=== PATIENT | male | born 1950 | race African-American/Black ===

== ENCOUNTER 2020-10-03 15:47 | Emergency (ER) | payer OTHER ==
[2020-10-03 17:49] LABS: Absolute Lymphocytes (CBC) 2.6 K/uL (0.7-4.9); Basophils % 0.7 % (0-1.3); Hematocrit 42.9 % (39.6-49.0); Lymphocytes % 39.1 % (15.3-44.8); MPV 8.2 fL (7.6-11.3)
[2020-10-03 17:50] LABS: Protime INR 1.19
[2020-10-03] MEDS ORDERED: METHYLPREDNISOLONE 125 MG INJ ONE (18:08)
[2020-10-03] MEDS ORDERED: LEVALBUTEROL 1.25 MG/3 ML NEB ONE (18:09)
[2020-10-03] MEDS ORDERED: cloNIDine HCL 0.1 MG TAB ONE (18:09)
[2020-10-03 18:13] LABS: ALT/SGPT 25 U/L (12-78); AST/SGOT 18 U/L (15-37); Albumin 4.1 g/dL (3.4-5.0); Alkaline Phosphatase 71 U/L (45-117); BUN Blood Urea Nitrogen 12 mg/dL (7-18); Bicarbonate 30 mmol/L (21-32); Bilirubin Direct 0.1 mg/dL (0-0.2); Bilirubin Total 0.4 mg/dL (0.2-1.0); Glucose Level 92 mg/dL (74-106); Magnesium 2.2 mg/dL (1.8-2.4); NT PRO-BNP 151 pg/mL (<125); Potassium 4.3 mmol/L (3.5-5.1); Protein, Total 8.2 g/dL (6.4-8.2); Sodium Level 142 mmol/L (136-145); Troponin (Emerg Dept Use Only) < 0.02 ng/mL (0.0-0.045)
--- NOTE | 2020-10-03 18:46 | RAD REPORT ---
EXAM DESCRIPTION: CT - Chest For Pe Angio - 10/03/2020 6:36 pm CLINICAL HISTORY: Shortness of breath COMPARISON: None. TECHNIQUE: Dynamically enhanced axial 3 mm thick images of the chest were obtained during administra tion of <100> mL Isovue 370 IV contrast. Coronal and oblique reconstruction images were generated and reviewed. Exam utilizes a protocol for optimal evaluation of pulmonary arterial tree. Maximum intensity projections 3D imaging was utilized All CT scans are performed using dose optimization technique as appropriate and may include automated exposure control or mA/KV adjustment according to patient size. FINDINGS: A pulmonary embolus is not seen. A thoracic aortic aneurysm is not noted. A pleural effusion is not seen. A pericardial effusion is not seen. A lung consolidation is not present. Bulla and blebs are present. The largest bleb lies within the le ft upper lobe measuring 6 centimeters IMPRESSION: Negative for a pulmonary embolism.
--- NOTE | 2020-10-03 18:46 | RAD REPORT ---
EXAM DESCRIPTION: [place] Single View10/03/2020 5:56 pm CLINICAL HISTORY: sob COMPARISON: 2016 FINDINGS: Blebs are present within the upper lobes. The lungs appear clear of acute infiltrate. The heart is probably upper limits normal size IMPRESSION: No acute abnormalities displayed
--- NOTE | 2020-10-03 19:08 | ER ---
Nurse's Notes [facility] Name: Von Pond Age: 69 yrs Sex: Male : 1950 Arrival Date: 10/03/2020 Time: 15:52 Bed 2 Private MD: Diagnosis: COPD/ Chronic obstructive pulmonary disease with (acute) exacerbation;Hypertensive heart disease without heart failure Presentation: 10/03 16:05 Chief complaint: Patient states: SOB x 2 days, at the clinic and they sent me for my BP jl7 of 214/111, denies CP, denies NINA, denies N/V/D. Coronavirus screen: Client denies travel out of the [place] in the last 14 days. At this time, the client does not indicate any symptoms associated with coronavirus-19. Ebola Screen: No symptoms or risks identified at this time. Initial Sepsis Screen: Does the patient meet any 2 criteria? No. Patient's initial sepsis screen is negative. Does the patient have a suspected source of infection? No. Patient's initial sepsis screen is negative. Risk Assessment: Do you want to hurt yourself or someone else? Patient reports no desire to harm self or others. Onset of symptoms was October 03, 2020. Care prior to arrival: None. 16:05 Method Of Arrival: Ambulatory jl7 16:05 Acuity: MAI 2 jl7 Triage Assessment: 16:08 General: Appears in no apparent distress. uncomfortable, Behavior is calm, cooperative, jl7 appropriate for age. Pain: Denies pain. Neuro: Level of Consciousness is awake, alert, obeys commands, Oriented to person, place, time, situation. Cardiovascular: Denies chest pain, Patient's skin is warm and dry. Respiratory: Airway is patent Respiratory effort is even, unlabored, Respiratory pattern is regular, symmetrical. Derm: Skin is dry, Skin is normal, Skin temperature is warm. Historical: - Allergies: 16:08 No Known Allergies; jl7 - Home Meds: 16:08 None [Active]; jl7 - PMHx: 16:08 None; jl7 - PSHx: 16:08 None; jl7 - Immunization history:: Adult Immunizations up to date, Client reports receiving the 2nd dose of the Covid vaccine. - Social history:: Smoking status: Patient reports the use of cigarette tobacco products, smokes one pack cigarettes per day. Screenin:30 Abuse screen: Denies threats or abuse. Nutritional screening: No deficits noted. aa5 Tuberculosis screening: No symptoms or risk factors identified. 17:50 Fall Risk IV access (20 points). Ambulatory Aid- Crutches/Cane/Walker (15 pts). Total aa5 Siu Fall Scale indicates Low Risk Score (25-44 pts). Fall prevention measures have been instituted. Side Rails Up X 2 Placed close to Nursing Station. Assessment: 17:30 General: Appears comfortable, Behavior is calm, cooperative. Pain: Denies pain. Neuro: aa5 Level of Consciousness is awake, alert, obeys commands, Oriented to person, place, time, situation. Cardiovascular: Heart tones S1 S2 present Rhythm is regular. Respiratory: Reports shortness of breath cough that is dry, Airway is patent Respiratory effort is even, unlabored, Respiratory pattern is tachypnea Breath sounds with wheezes bilaterally. GI: Abdomen is round non-distended, Bowel sounds present X 4 quads. Abd is soft and non tender X 4 quads. : No signs and/or symptoms were reported regarding the genitourinary system. EENT: No signs and/or symptoms were reported regarding the EENT system. Derm: Skin is dry, Skin is normal, Skin temperature is warm. Musculoskeletal: Range of motion: intact in all extremities. 19:00 Reassessment: Pt back from CT, pt states feeling better, SOB improved. . Neuro: Level aa5 of Consciousness is awake, alert, obeys commands, Oriented to person, place, time, situation. Respiratory: Airway is patent Respiratory effort is even, unlabored, Respiratory pattern is regular, symmetrical. Derm: Skin is dry, Skin is normal, Skin temperature is warm. Vital Signs: 16:05 BP 215 / 116; Pulse 82; Resp 17; Temp 98.2(O); Pulse Ox 99% on R/A; Weight 93.44 kg; jl7 Height 5 ft. 9 in. (175.26 cm); Pain 0/10; 17:31 BP 211 / 111; Pulse 66; Resp 24 S; Pulse Ox 97% on R/A; aa5 19:00 BP 147 / 97; Pulse 80; Resp 20 S; Pulse Ox 98% on R/A; aa5 16:05 Body Mass Index 30.42 (93.44 kg, 175.26 cm) jl7 ED Course: 15:52 Patient arrived in ED. am2 16:08 Triage completed. jl7 16:08 Arm band placed on right wrist. Patient placed in waiting room, Patient notified of jl7 wait time. 17:01 Chica Rivera, RN is Primary Nurse. aa5 17:07 Emmanuel Collins PA is PHCP. cp 17:07 Abdifatah Loaiza MD is Attending Physician. cp 17:30 Patient has correct armband on for positive identification. Bed in low position. Call aa5 light in reach. Side rails up X 1. Adult w/ patient. patient monitor on. Pulse ox on. NIBP on. 17:33 COVID swab sent to lab. vg1 17:38 Initial lab(s) drawn, by me, sent to lab. Inserted saline lock: 20 gauge in right aa5 antecubital area, using aseptic technique. Blood collected. 17:51 XRAY Chest (1 view) In Process Unspecified. EDMS 18:36 CT Chest For PE Angio In Process Unspecified. EDMS 19:26 No provider procedures requiring assistance completed. IV discontinued, intact, bs2 bleeding controlled, No redness/swelling at site. Administered Medications: 17:50 Drug: SOLU-Medrol (methylPrednisoLONE) 125 mg Route: IVP; Site: right antecubital; aa5 19:13 Follow up: Response: No adverse reaction bs2 17:50 Drug: cloNIDine 0.2 mg Route: PO; aa5 19:13 Follow up: Response: No adverse reaction bs2 17:55 Drug: Xopenex (levalbuterol) (3) 1.25 mg Route: Inhalation; aa5 18:59 CANCELLED (Physician Discretion): Lisinopril 20 mg PO once cp 18:59 Not Given (Physician Discretion): amLODIPine 10 mg PO once aa5 19:26 Drug: amLODIPine 10 mg Route: PO; bs2 19:26 Follow up: Response: No adverse reaction bs2 Outcome: 19:08 Discharge ordered by . cp 19:27 Discharged to home ambulatory, with significant other. bs2 19:27 Condition: improved 19:27 Discharge instructions given to patient, significant other, Instructed on discharge instructions, follow up and referral plans. medication usage, Demonstrated understanding of instructions, follow-up care, medications, Prescriptions given X 3. 19:27 Patient left the ED. bs2 Signatures: Dispatcher [employer] EDMS Chica Rivera, RN RN aa5 Emmanuel Collins PA PA cp Leal, Jahala RN RN jl7 Mary Kelly Victoria RN RN vg1 Ami Street, RN RN bs2 Corrections: (The following items were deleted from the chart) 19:25 17:30 Fall Risk None identified. aa5 aa5
--- NOTE | 2020-10-03 19:08 | EDPHYS ---
Physician Documentation [facility] Name: Von Pond Age: 69 yrs Sex: Male : 1950 Arrival Date: 10/03/2020 Time: 15:52 Bed 2 Private MD: ED Physician Abdifatah Loaiza HPI: 10/03 17:25 This 69 yrs old Black Male presents to ER via Ambulatory with complaints of High Blood cp Pressure. 17:25 The patient has elevated blood pressure and discovered this at a physician's office, cp and sent to the emergency department for evaluation. 17:25 Onset: The symptoms/episode began/occurred today. cp 17:25 Associated signs and symptoms: Pertinent positives: shortness of breath times 2 days, cp Pertinent negatives: chest pain, headache, visual changes. Severity of symptoms: At its worst the blood pressure was 214 mm Hg. The patient has not experienced similar symptoms in the past. Historical: - Allergies: 16:08 No Known Allergies; jl7 - Home Meds: 16:08 None [Active]; jl7 - PMHx: 16:08 None; jl7 - PSHx: 16:08 None; jl7 - Immunization history:: Adult Immunizations up to date, Client reports receiving the 2nd dose of the Covid vaccine. - Social history:: Smoking status: Patient reports the use of cigarette tobacco products, smokes one pack cigarettes per day. ROS: 17:30 Respiratory: Positive for shortness of breath, at rest. cp 17:30 Eyes: Negative for injury, pain, redness, and discharge. cp 17:30 Constitutional: Negative for body aches, chills, fever, poor PO intake. 17:30 ENT: Negative for ear pain, rhinorrhea, difficulty swallowing, difficulty handling secretions. 17:30 Cardiovascular: Negative for chest pain, edema, palpitations. 17:30 Abdomen/GI: Negative for abdominal pain, nausea, vomiting, and diarrhea. 17:30 Back: Negative for pain at rest, pain with movement. 17:30 : Negative for urinary symptoms. Exam: 17:33 Constitutional: The patient appears in no acute distress, alert, awake, cp non-diaphoretic, non-toxic, well developed, well nourished. 17:33 Head/Face: Normocephalic, atraumatic. cp 17:33 Eyes: Periorbital structures: appear normal, Pupils: equal, round, and reactive to light and accomodation, Extraocular movements: intact throughout, Conjunctiva: normal, no exudate, no injection, Sclera: no appreciated abnormality, Lids and lashes: appear normal, bilaterally. 17:33 ENT: External ear(s): are unremarkable, Nose: is normal, Mouth: Lips: moist, Oral mucosa: pink and intact, moist, Posterior pharynx: Airway: no evidence of obstruction, patent. 17:33 Neck: ROM/movement: is normal, is supple, without pain, no range of motions limitations. 17:33 Chest/axilla: Inspection: normal, Palpation: is normal, no crepitus, no tenderness. 17:33 Cardiovascular: Rate: normal, Rhythm: regular, Heart sounds: murmur, not appreciated, Edema: is not appreciated, JVD: is not appreciated. 17:33 Respiratory: the patient does not display signs of respiratory distress, Respirations: normal, no use of accessory muscles, no retractions, labored breathing, is not present, Breath sounds: are clear throughout, no decreased breath sounds, no stridor, no wheezing. 17:33 Abdomen/GI: Inspection: abdomen appears normal, Palpation: abdomen is soft and non-tender, in all quadrants. 17:33 Neuro: Orientation: to person, place \T\ time. Mentation: is normal, Cerebellar function: is grossly normal, Motor: moves all fours, strength is normal, Sensation: is normal. 17:35 ECG was reviewed by the Attending Physician. Vital Signs: 16:05 BP 215 / 116; Pulse 82; Resp 17; Temp 98.2(O); Pulse Ox 99% on R/A; Weight 93.44 kg; jl7 Height 5 ft. 9 in. (175.26 cm); Pain 0/10; 17:31 BP 211 / 111; Pulse 66; Resp 24 S; Pulse Ox 97% on R/A; aa5 19:00 BP 147 / 97; Pulse 80; Resp 20 S; Pulse Ox 98% on R/A; aa5 16:05 Body Mass Index 30.42 (93.44 kg, 175.26 cm) 7 MDM: 17:12 Patient medically screened. 19:08 Data reviewed: vital signs, nurses notes, lab test result(s), EKG, radiologic studies, cp CT scan, and as a result, I will discharge patient. 19:08 Test interpretation: by ED physician or midlevel provider: ECG, plain radiologic cp studies. Counseling: I had a detailed discussion with the patient and/or guardian regarding: the historical points, exam findings, and any diagnostic results supporting the discharge/admit diagnosis, the presence of at least one elevated blood pressure reading (>120/80) during this emergency department visit, lab results, radiology results, the need for outpatient follow up, for definitive care, a family practitioner, to return to the emergency department if symptoms worsen or persist or if there are any questions or concerns that arise at home, smoking cessation. Response to treatment: the patient's symptoms have markedly improved after treatment. ED course: VSS. Blood pressure markedly improved. Shortness of breath improved. No signs of respiratory distress. Will discharge to home for continued monitoring. 10/03 17:17 Order name: Basic Metabolic Panel; Complete Time: 18:15 cp 10/03 18:15 Interpretation: Normal except: CL 108. cp 10/03 17:17 Order name: CBC with Diff; Complete Time: 18:15 cp 10/03 17:17 Order name: LFT's; Complete Time: 18:15 cp 10/03 17:17 Order name: Magnesium; Complete Time: 18:15 cp 10/03 17:17 Order name: NT PRO-BNP; Complete Time: 18:15 cp 14 17:17 Order name: PT-INR; Complete Time: 18:15 cp 10/03 17:17 Order name: Troponin (emerg Dept Use Only); Complete Time: 18:15 cp 10/03 17:17 Order name: XRAY Chest (1 view); Complete Time: 18:56 cp 10/03 18:17 Order name: CT Chest For PE Angio; Complete Time: 18:56 cp 10/03 17:17 Order name: EKG; Complete Time: 17:18 cp 10/03 17:17 Order name: Cardiac monitoring; Complete Time: 17:36 cp 14 17:17 Order name: EKG - Nurse/Tech; Complete Time: 17:36 cp 10/03 17:17 Order name: IV Saline Lock; Complete Time: 17:43 cp 10/03 17:17 Order name: Labs collected and sent; Complete Time: 17:43 cp 10/03 17:17 Order name: O2 Per Protocol; Complete Time: 17:36 cp 10/03 17:17 Order name: O2 Sat Monitoring; Complete Time: 17:36 cp EC:35 Rate is 71 beats/min. Rhythm is regular. ME interval is normal. QRS interval is normal. cp QT interval is normal. Interpreted by me. Reviewed by me. Administered Medications: 17:50 Drug: SOLU-Medrol (methylPrednisoLONE) 125 mg Route: IVP; Site: right antecubital; aa5 19:13 Follow up: Response: No adverse reaction bs2 17:50 Drug: cloNIDine 0.2 mg Route: PO; aa5 19:13 Follow up: Response: No adverse reaction bs2 17:55 Drug: Xopenex (levalbuterol) (3) 1.25 mg Route: Inhalation; aa5 18:59 CANCELLED (Physician Discretion): Lisinopril 20 mg PO once cp 18:59 Not Given (Physician Discretion): amLODIPine 10 mg PO once aa5 19:26 Drug: amLODIPine 10 mg Route: PO; bs2 19:26 Follow up: Response: No adverse reaction bs2 Disposition: 10/04 06:41 Co-signature as Attending Physician, Abdifatah Loaiza MD I agree with the assessment and kdr plan of care. Disposition Summary: 10/03/20 19:08 Discharge Ordered Location: Home cp Problem: new cp Symptoms: have improved cp Condition: Stable cp Diagnosis - COPD/ Chronic obstructive pulmonary disease with (acute) exacerbation cp - Hypertensive heart disease without heart failure cp Followup: cp - With: Private Physician - When: 1 - 2 days - Reason: Recheck today's complaints Discharge Instructions: - Discharge Summary Sheet cp - Hypertension, Adult cp - Chronic Obstructive Pulmonary Disease Exacerbation cp - Steps to Quit Smoking cp - Health Risks of Smoking cp - Smoking Tobacco Information, Adult cp Forms: - Medication Reconciliation Form cp - Thank You Letter cp - Antibiotic Education cp - Prescription Opioid Use cp Prescriptions: - albuterol sulfate 90 mcg/actuation Inhalation HFA aerosol inhaler - inhale 2 puff by INHALATION route every 4-6 hours; 1 Inhaler; Refills: 0, cp Product Selection Permitted - amlodipine 5 mg Oral tablet - take 1 tablet by ORAL route once daily; 30 tablet; Refills: 0, Product cp Selection Permitted - Prednisone 20 mg Oral Tablet - take 2 tablets by ORAL route once daily for 5 days; 10 tablet; Refills: 0, cp Product Selection Permitted Signatures: Dispatcher [employer] EDAZ Abdifatah Loaiza MD MD kdr Calderon, Audri RN RN aa5 Emmanuel Collins PA PA cp Abhi Bush RN RN jl7 Ami Street RN RN bs2 Corrections: (The following items were deleted from the chart) 10/03 18:48 17:19 CORONAVIRUS+MR.LAB.BRZ ordered. EDAZ EDMS 18:59 18:59 Lisinopril 20 mg PO once ordered. cp cp
[2020-10-03] MEDS ORDERED: AMLODIPINE 10 MG TAB ONE (19:36)
[2020-10-03 19:56] VITALS: TEMP 98.2
[2020-10-03 19:59] VITALS: BP 147/97; O2SAT 98
--- NOTE | 2020-10-04 07:30 | EKG ---
Test Date: 2020-10-03 Test Time: 17:30:30 Railway Track Worker: SANGEETHA MEASUREMENT RESULTS: Intervals: Rate: 71 WI: 150 QRSD: 90 QT: 400 QTc: 434 Maryneal: P: 79 WI: 150 QRS: 56 T: 44 INTERPRETIVE STATEMENTS: Normal sinus rhythm Voltage criteria for left ventricular hypertrophy Abnormal ECG Compared to ECG 07/29/2015 17:37:40 No significant changes Electronically Signed On 10-04-20 07:29:05 CDT by Richard Barker
== END 2020-10-03 19:27 | disposition home or self-care (01) ==
LOC: ER 15:47
DX: J44.1 Chronic obstructive pulmonary disease with (acute) exacerbation (principal); I11.9 Hypertensive heart disease without heart failure; F17.210 Nicotine dependence, cigarettes, uncomplicated; Z20.822 Contact with and (suspected) exposure to COVID-19
CPT/HCPCS: 93005; 85025; 80048; 36415; 83735; 85610; 80076; 84484; 83880; 71275; 71045; 96374; 99285; U0003; J2930

== ENCOUNTER 2023-09-25 10:48 | Observation (INO) | payer MEDICARE, OTHER ==
--- OUTSIDE RECORDS SUMMARY | 2023-09-25 10:51 | XMS REPORT | Continuity of Care Document ---
Author Name Unknown Address [address] [place] [address] [facility] Address [address] [place] [address] Care Team Providers Care Mannequin Mold Maker Name Role Phone Unavailable Unavailable Unavailable Payers Payer Name Policy Type Policy Number Effective Date Expirati on Date Source [employer] (MEDICARE REPLACEMENT HMO) [id number] 2023 00:00:00 Encounters Start Date/Time End Date/Time Encounter Type Admission Type Attending [facility] Facility Care Department Encounter ID Source 2023-01-21 00:00:00 2023-01-21 00:00:00 Outpatient [facility] [id number] [facility] 2023-01-09 00:00:00 2023-01-09 00:00:00 Outpatient [id number] [facility]
[2023-09-25 11:42] LABS: Absolute Eosinophils 0.3 K/uL (0-0.5); Absolute Lymphocytes (CBC) 2.5 K/uL (0.7-4.9); Absolute Monocytes 0.6 K/uL (0.1-1.3); Absolute Neutrophil 1.7 K/uL (1.8-8.0); Basophils % 0.7 % (0-1.3); Eosinophils % 6.3 % (0-4.4); Hematocrit 40.2 % (39.6-49.0); Hemoglobin 12.6 g/dL (13.6-17.9); Lymphocytes % 47.7 % (15.3-44.8); MCH 26.6 pg (27.0-35.0); MCHC 31.3 g/dL (32.0-36.0); MCV 85.1 fL (80-100); MPV 7.7 fL (7.6-11.3); Monocytes % 12.1 % (3.3-12.3); Neutrophils % 33.2 % (41.7-73.7); Platelets 224 thou/uL (152-406); RBC Red Blood Cell Count 4.73 M/uL (4.33-5.43); Red Cell Distribution Width 14.6 % (12.1-15.2)
[2023-09-25 11:47] LABS: PT Prothrombin Time 12.5 SECONDS (9.4-12.5); Protime INR 1.14
--- NOTE | 2023-09-25 12:03 | RAD REPORT ---
EXAM DESCRIPTION: RAD - Chest Single View - 09/25/2023 11:54 am CLINICAL HISTORY: CHEST PAIN Chest pain. COMPARISON: Chest Single View dated 10/03/2020; Chest Single View dated 07/29/2015 FINDINGS: Portable technique limits examination quality. The lungs are grossly clear. The heart is upper limit of normal in size. No displaced fractures. IMPRESSION: No acute intrathoracic process suspected.
[2023-09-25 12:12] LABS: Anion Gap 4.7 mEq/L (5.0-15.0); Potassium 3.7 mEq/L (3.5-5.1); Troponin High Sensitivity 5.8 pg/mL (<58.9)
--- NOTE | 2023-09-25 13:06 | EDPHYS ---
Physician Documentation [facility] Name: Von Pond Age: 72 yrs Sex: Male : 1950 Arrival Date: 09/25/2023 Time: 10:48 Bed 16 Private MD: ED Physician Krzysztof Connell HPI: 09/24 11:10 This 72 yrs old Black Male presents to ER via Unassigned with complaints of Foot Pain, rn Chest Pain. 11:10 The patient or guardian reports chest pain that is located primarily in the substernal rn area. Onset: 3 day(s) ago. The pain radiates to the left shoulder, left neck. Associated signs and symptoms: Pertinent negatives: abdominal pain, cough, diaphoresis, lower extremity swelling, palpitations, shortness of breath, syncope, vomiting. The chest pain is described as aching. Duration: The patient or guardian reports multiple episodes, that are intermittent. Modifying factors: The symptoms are alleviated by nothing. the symptoms are aggravated by nothing. Severity of pain: At its worst the pain was mild in the emergency department the pain has improved. The patient has not experienced similar symptoms in the past. Patient reports 3 days of intermittent chest pain, substernal and left-sided, radiates to the left shoulder and neck. Denies fever or illness. No cough. No trauma. Did move a washing machine and heavy door 1 week ago but this chest pain started days after. No current chest pain but had an episode that lasted a few minutes prior to coming in this morning which prompted his visit today. Denies previous cardiac workup.. Historical: - Allergies: 11:10 No Known Allergies; ll1 - Home Meds: 11:10 amlodipine oral [Active]; atorvastatin oral [Active]; Hydrochlorothiazide Oral [Active];ll1 - PMHx: 11:10 Hypertensive disorder; Hypercholesterolemia; ll1 - PSHx: 11:10 None; ll1 - Immunization history:: Adult Immunizations up to date. - Infectious Disease History:: Denies. - Social history:: Smoking status: Patient/guardian denies using tobacco. - Family history:: not pertinent. - Hospitalizations: : No recent hospitalization is reported. ROS: 11:10 Constitutional: Negative for fever, chills, and weight loss, Eyes: Negative for injury, rn pain, redness, and discharge, Neck: Negative for injury, pain, and swelling, Cardiovascular: Positive for chest pain Respiratory: Negative for shortness of breath, cough, wheezing, and pleuritic chest pain, Abdomen/GI: Negative for abdominal pain, nausea, vomiting, diarrhea, and constipation, Back: Negative for injury and pain, MS/Extremity: Negative for injury and deformity, Skin: Negative for injury, rash, and discoloration, Neuro: Negative for headache, weakness, numbness, tingling, and seizure, Exam: 11:10 Constitutional: This is a well developed, well nourished patient who is awake, alert, rn and in no acute distress. Head/Face: Normocephalic, atraumatic. Chest/axilla: Normal chest wall motion. Nontender with no deformity. Cardiovascular: Regular rate and rhythm. No pulse deficits. Respiratory: No increased work of breathing, no retractions or nasal flaring. Abdomen/GI: Soft, non-tender MS/ Extremity: Pulses equal, no cyanosis. Neurovascular intact. Full, normal range of motion. Equal circumference. Neuro: Awake and alert, GCS 15 11:24 ECG was reviewed by the Attending Physician. rn Vital Signs: 11:12 BP 187 / 94; Pulse 73; Resp 17; Temp 98.2; Pulse Ox 99% on R/A; Weight 96.16 kg; Height ll1 5 ft. 8 in. ; Pain 4/10; 11:39 BP 135 / 83; Pulse 67; Resp 19 S; Pulse Ox 94% on R/A; as6 12:54 BP 168 / 97; Pulse 67; Resp 18; Pulse Ox 94% on R/A; Pain 0/10; al5 13:54 BP 119 / 96; Pulse 63; Resp 16; Pulse Ox 100% on R/A; al5 14:50 BP 137 / 79; Pulse 68; Resp 17; Pulse Ox 95% on R/A; al5 11:12 Body Mass Index 32.23 (96.16 kg, 172.72 cm) ll1 11:12 Pain Scale: Adult ll1 12:54 Pain Scale: Adult al5 MDM: 10:59 Patient medically screened. rn 12:52 HEART Score: History: Highly Suspicious (2), ECG: Non specific repolarization rn disturbance / LBTB / PM (1), Age: > or = 65 years (2), Risk Factors: 1 or 2 risk factors (1), Troponin: < or = 1 x Normal Limit (0), Total Score = 6. 13:05 Differential diagnosis: acute myocardial infarction, acute pericarditis, anxiety, rn coronary artery disease chest wall pain, costochondritis, esophagitis, gastritis, gastroesophageal reflux disease (GERD), stable angina, unstable angina. The patient was given aspirin in the Emergency Department. Data reviewed: vital signs, nurses notes, lab test result(s), EKG, radiologic studies, plain films, and as a result, I will admit patient. Consideration of Admission/Observation Patient was admitted/placed on observation. Escalation of care including admission/observation considered. Counseling: I had a detailed discussion with the patient and/or guardian regarding the historical points, exam findings, and any diagnostic results supporting the discharge/admit diagnosis, lab results, radiology results, the need for further work-up and treatment in the hospital. 09/24 11:24 Order name: Basic Metabolic Panel; Complete Time: 12:32 rn 09/24 11:24 Order name: CBC with Diff; Complete Time: 12:12 rn 09/24 11:24 Order name: NT PRO-BNP; Complete Time: 12:32 rn 09/24 11:24 Order name: PT-INR; Complete Time: 12:12 rn 09/24 11:24 Order name: Troponin HS; Complete Time: 12:32 rn 09/24 14:17 Order name: T4 Free EDKS 09/24 14:17 Order name: Thyroid Stimulating Hormone EDKS 09/24 14:17 Order name: Basic Metabolic Panel EDMS 09/24 14:17 Order name: Basic Metabolic Panel EDMS 09/24 14:17 Order name: Basic Metabolic Panel EDMS 09/24 14:17 Order name: Basic Metabolic Panel EDMS 09/24 14:17 Order name: Basic Metabolic Panel EDMS 09/24 14:17 Order name: Basic Metabolic Panel EDMS 09/24 14:17 Order name: CBC with Automated Diff EDMS 09/24 14:17 Order name: CBC with Automated Diff EDMS 09/24 14:17 Order name: CBC with Automated Diff EDMS 09/24 14:17 Order name: CBC with Automated Diff EDMS 09/24 14:17 Order name: CBC with Automated Diff EDMS 09/24 14:17 Order name: CBC with Automated Diff EDMS 09/24 14:17 Order name: Hemoglobin A1c EDMS / 14:17 Order name: Hemoglobin A1c EDMS 07/ 14:17 Order name: Lipid Profile EDMS / 14:17 Order name: Lipid Profile EDMS 07/ 14:17 Order name: Magnesium EDMS 07 14:17 Order name: Magnesium EDMS 07 14:17 Order name: Magnesium EDMS 07/ 14:17 Order name: Magnesium EDMS 07/ 14:17 Order name: Magnesium EDMS 07/ 14:17 Order name: Magnesium EDMS 07 14:17 Order name: Phosphorus EDMS 07/ 14:17 Order name: Phosphorus EDMS 09/24 14:17 Order name: Phosphorus EDMS 07/ 14:17 Order name: Phosphorus EDMS / 14:17 Order name: Phosphorus EDMS 09/24 14:17 Order name: Phosphorus EDMS 09/24 14:17 Order name: Troponin High Sensitivity EDMS 09/24 14:17 Order name: Troponin High Sensitivity EDMS 09/24 14:17 Order name: Troponin High Sensitivity EDMS / 11:24 Order name: XRAY Chest (1 view); Complete Time: 12:12 rn 09/24 14:17 Order name: Echo with Doppler EDMS 09/24 11:24 Order name: EKG; Complete Time: 11:24 rn 09/24 11:24 Order name: Cardiac monitoring; Complete Time: 11:29 rn 09/24 11:24 Order name: EKG - Nurse/Tech; Complete Time: 11:29 rn 09/24 11:24 Order name: IV Saline Lock; Complete Time: 11:36 rn 09/24 11:24 Order name: Labs collected and sent; Complete Time: 11:36 rn 09/24 11:24 Order name: O2 Per Protocol; Complete Time: 11:29 rn 09/24 11:24 Order name: O2 Sat Monitoring; Complete Time: 11:29 rn EC:24 Rate is 71 beats/min. Rhythm is regular. QRS Radom is Normal. OH interval is normal. QRS rn interval is normal. QT interval is normal. No Q waves. No ST changes noted. Clinical impression: NSR w/ Non-specific ST/T Changes. Interpreted by me. Reviewed by me. Administered Medications: 13:37 Drug: Aspirin PO Chewable Tablet 324 mg PO once; 81 mg tablets x 4 Route: PO; rs5 13:54 Follow up: Response: No adverse reaction al5 Disposition Summary: 09/25/23 13:06 Hospitalization Ordered Notes: Hospitalization Status: Observation rn Provider: Joseph Connell rn Location: Telemetry/MedSurg (observation) rn Condition: Stable rn Problem: new rn Symptoms: have improved rn Bed/Room Type: Standard rn Room Assignment: [facility](09/25/23 14:38) [facility] Diagnosis - Chest pain, unspecified rn Forms: - Medication Reconciliation Form rn - SBAR form rn - Leadership Thank You Letter rn Signatures: Dispatcher [employer] EDMS Krzysztof Connell MD MD rn Aguilar, Jose RN RN ja1 Jason Severino RN RN ll1 Jamaal Sadler RN RN rs5 Mary Romero RN al5 Corrections: (The following items were deleted from the chart) 11:24 11:24 BASIC METABOLIC PANEL+C.LAB.BRZ ordered. EDMS EDMS 11:24 11:24 CBC+H.LAB.BRZ ordered. EDMS EDMS 11:24 11:24 PROBNP+C.LAB.BRZ ordered. EDMS EDMS 11:24 11:24 PROTIME (+INR)+COAG.LAB.BRZ ordered. EDMS EDMS 11:24 11:24 Troponin High Sensitivity+C.LAB.BRZ ordered. EDMS EDMS 14:26 13:06 rn zaida 14:38 14:26 410 ja1 ll1
--- NOTE | 2023-09-25 13:06 | ER ---
Nurse's Notes [facility] Name: Von Pond Age: 72 yrs Sex: Male : 1950 Arrival Date: 09/25/2023 Time: 10:48 Bed 16 Private MD: Diagnosis: Chest pain, unspecified Presentation: 09/24 11:12 Chief complaint: Patient states: Intermittent CP 2-3 days after moving heavy objects 3 ll1 days prior. Pain to R hip that radiates into R foot. Coronavirus screen: Client denies travel out of the [place] in the last 14 days. At this time, the client does not indicate any symptoms associated with coronavirus-19. Ebola Screen: Patient denies travel to an Ebola-affected area in the 21 days before illness onset. Initial Sepsis Screen: Does the patient meet any 2 criteria? No. Patient's initial sepsis screen is negative. Does the patient have a suspected source of infection? No. Patient's initial sepsis screen is negative. Risk Assessment: Do you want to hurt yourself or someone else? Patient reports no desire to harm self or others. Onset of symptoms was September 21, 2023. 11:12 Method Of Arrival: Ambulatory ll1 11:12 Acuity: MAI 3 ll1 Triage Assessment: 11:12 General: Appears uncomfortable, Behavior is calm, cooperative, appropriate for age. ll1 Pain: Complains of pain in chest and right leg Pain currently is 4 out of 10 on a pain scale. Quality of pain is described as aching, crampy. Cardiovascular: Reports chest pain. Musculoskeletal: Reports pain in right leg. Historical: - Allergies: 11:10 No Known Allergies; ll1 - Home Meds: 11:10 amlodipine oral [Active]; atorvastatin oral [Active]; Hydrochlorothiazide Oral [Active];ll1 - PMHx: 11:10 Hypertensive disorder; Hypercholesterolemia; ll1 - PSHx: 11:10 None; ll1 - Immunization history:: Adult Immunizations up to date. - Infectious Disease History:: Denies. - Social history:: Smoking status: Patient/guardian denies using tobacco. - Family history:: not pertinent. - Hospitalizations: : No recent hospitalization is reported. Screenin:[facility] ED Fall Risk Assessment (Adult) History of falling in the last 3 months, as6 including since admission No falls in past 3 months (0 pts) Confusion or Disorientation No (0 pts) Intoxicated or Sedated No (0 pts) Impaired Gait No (0 pts) Mobility Assist Device Used No (0 pt) Altered Elimination No (0 pt) Score/Fall Risk Level 0 - 2 = Low Risk Oriented to surroundings, Maintained a safe environment, Educated pt \T\ family on fall prevention, incl call for assistance when getting out of bed, Assessed \T\ reinforced patient's understanding of fall precautions. Abuse screen: Denies threats or abuse. Denies injuries from another. Nutritional screening: No deficits noted. Tuberculosis screening: No symptoms or risk factors identified. Assessment: 11:40 General: Appears in no apparent distress. comfortable, Behavior is calm, cooperative. as6 Pain: Complains of pain in chest Quality of pain is described as sharp, Is episodic. Neuro: Level of Consciousness is awake, alert, obeys commands, Oriented to person, place, time, situation. Cardiovascular: Reports chest pain, Denies shortness of breath, Capillary refill < 3 seconds Patient's skin is warm and dry. Respiratory: Airway is patent Trachea midline Respiratory effort is even, unlabored, Respiratory pattern is regular, symmetrical. GI: No deficits noted. No signs and/or symptoms were reported involving the gastrointestinal system. : No deficits noted. No signs and/or symptoms were reported regarding the genitourinary system. EENT: No deficits noted. No signs and/or symptoms were reported regarding the EENT system. Derm: Skin is intact, is healthy with good turgor. Musculoskeletal: Circulation, motion, and sensation intact. 12:16 General: Appears in no apparent distress. comfortable, Behavior is calm, cooperative, cm10 Assumed care of patient at this time. Pt resting on stretcher. Pt on continuous cardiac monitoring. Updated pt on plan of care. Call light in reach. Pt A\T\Ox4, respirations even and unlabored.. Neuro: No deficits noted. Level of Consciousness is awake, alert, obeys commands, Oriented to person, place, time, situation. Cardiovascular: No deficits noted. Patient's skin is warm and dry. Rhythm is sinus rhythm. Respiratory: No deficits noted. Airway is patent Respiratory effort is even, unlabored, Respiratory pattern is regular, symmetrical. 12:51 General: Appears in no apparent distress. comfortable, Behavior is calm, cooperative. al5 Pain: Denies pain. Neuro: Level of Consciousness is awake, alert, obeys commands, Oriented to person, place, time, situation. Cardiovascular: Reports chest pain, initially, denies chest pain now. Capillary refill is > 3 seconds Patient's skin is warm and dry. Rhythm is sinus rhythm. Respiratory: Airway is patent Trachea midline Respiratory effort is even, unlabored, Respiratory pattern is regular, symmetrical. GI: No deficits noted. No signs and/or symptoms were reported involving the gastrointestinal system. : No deficits noted. No signs and/or symptoms were reported regarding the genitourinary system. EENT: No deficits noted. No signs and/or symptoms were reported regarding the EENT system. Derm: Skin is intact, Skin is pink, warm \T\ dry. normal, Skin temperature is warm. 13:54 Reassessment: Patient appears in no apparent distress at this time. No changes from al5 previously documented assessment. Patient and/or family updated on plan of care and expected duration. Pain level reassessed. Patient is alert, oriented x 3, equal unlabored respirations, skin warm/dry/pink. 14:49 Reassessment: Patient appears in no apparent distress at this time. No changes from al5 previously documented assessment. Patient and/or family updated on plan of care and expected duration. Pain level reassessed. Patient is alert, oriented x 3, equal unlabored respirations, skin warm/dry/pink. 15:23 Pain: Pain does not radiate. al5 15:23 Pain: Pain began. al5 Vital Signs: 11:12 BP 187 / 94; Pulse 73; Resp 17; Temp 98.2; Pulse Ox 99% on R/A; Weight 96.16 kg; Height ll1 5 ft. 8 in. ; Pain 4/10; 11:39 BP 135 / 83; Pulse 67; Resp 19 S; Pulse Ox 94% on R/A; as6 12:54 BP 168 / 97; Pulse 67; Resp 18; Pulse Ox 94% on R/A; Pain 0/10; al5 13:54 BP 119 / 96; Pulse 63; Resp 16; Pulse Ox 100% on R/A; al5 14:50 BP 137 / 79; Pulse 68; Resp 17; Pulse Ox 95% on R/A; al5 11:12 Body Mass Index 32.23 (96.16 kg, 172.72 cm) ll1 11:12 Pain Scale: Adult ll1 12:54 Pain Scale: Adult al5 ED Course: 10:57 Patient arrived in ED. im 10:59 Krzysztof Connell MD is Attending Physician. rn 11:03 Tomi Nassar, RN is Primary Nurse. as6 11:09 Arm band placed on Patient placed in an exam room, on a stretcher. ll1 11:14 Triage completed. ll1 11:36 Basic Metabolic Panel Sent. as6 11:36 CBC with Diff Sent. as6 11:36 NT PRO-BNP Sent. as6 11:36 PT-INR Sent. as6 11:36 Troponin HS Sent. as6 11:40 Inserted saline lock: 20 gauge in left antecubital area, using aseptic technique. Blood as6 collected. 11:41 Bed in low position. Call light in reach. Side rails up X 1. Client placed on as6 continuous cardiac and pulse oximetry monitoring. NIBP monitoring applied. deburrer on. 11:54 XRAY Chest (1 view) In Process Unspecified. EDMS 12:16 Primary Nurse role handed off by Tomi Nassar RN cm10 12:16 Suzan Rdz, TWIN is Primary Nurse. cm10 12:46 Primary Nurse role handed off by Suzan Rdz RN al5 12:46 Mary Romero, TWIN is Primary Nurse. al5 13:06 Joseph Connell MD is Hospitalizing Provider. rn 14:38 Report faxed to 4th floor at 1432. Confirmded received at 1434 by [facility]. ll1 15:22 No provider procedures requiring assistance completed. Patient admitted, IV remains in al5 place. O2 via room air. 15:23 Provided Education on: need for admission, cardiology consult. al5 Administered Medications: 13:37 Drug: Aspirin PO Chewable Tablet 324 mg PO once; 81 mg tablets x 4 Route: PO; rs5 13:54 Follow up: Response: No adverse reaction al5 Medication: 11:41 VIS not applicable for this client. as6 Outcome: 13:06 Decision to Hospitalize by Provider. rn 15:23 Admitted to Med/surg accompanied by nurse, via wheelchair, room 431, with chart, al5 15:23 Condition: good 15:23 Instructed on consults Demonstrated understanding of instructions, 15:24 Patient left the ED. al5 Signatures: Dispatcher [employer] EDMS Krzysztof Connell MD MD rn Lewis, Lynsay, RN RN ll1 Tomi Nassar RN RN as6 Jamaal Sadler RN RN rs5 Hannah Perez Clarissa RN RN cm10 Mary Romero RN RN al5
[2023-09-25] MEDS ORDERED: ASPIRIN EC 325 MG TABLET PO ONE (13:33)
--- NOTE | 2023-09-25 13:34 | P.HP ---
Certification for Inpatient Patient admitted to: Observation With expected LOS: <2 Midnights Patient will require the following post-hospital care: None Practitioner: I am a practitioner with admitting privileges, knowledge of patient current condition, hospital course, and medical plan of care. Services: Services provided to patient in accordance with Admission requirements found in Title 42 Section 412.3 of the Code of Federal Regulations Patient History Date of Service: 09/26/23 Reason for admission: Chest pain R/O History of Present Illness: Von Pond is a 72 year old male with Pmhx hypertension, hypercholesterolemia who presents to the ED with chief complaint of left sided chest pain radiating to left shoulder that started 3 days ago. He reports moving a coal washer and a heavy door 1 week ago which could be contributing to the chest pain. On palpation, the chest pain is nonreproducible. Toponin and EKG negative for ST elevation or depression. Will plan to trend troponin overnight, monitor on continuous telemetry, and consult cardiology. Initial vitals BP 187 / 94; Pulse 73; Resp 17; Temp 98.2; Pulse Ox 99% on R/A Chest x-ray reports "the lungs are grossly clear. The heart is upper limit of normal in size. No displaced fractures. IMPRESSION: No acute intrathoracic process suspected." Laboratory evaluation troponin 5.8, BNP 11, potassium 3.7, serum glucose 128 Von will be admitted to hospitalist service for further evaluation and treatment of chest pain r/o ACS, Cardiology consulted. Allergies No Known Allergies Allergy (Unverified 07/29/15 19:55) Home Medications: Amlodipine [Norvasc*] 7.5 mg PO BEDTIME 09/25/23 Atorvastatin Calcium 1 tab PO BEDTIME 09/25/23 hydroCHLOROthiazide [Hydrochlorothiazide] 12.5 mg PO BEDTIME 09/25/23 - Past Medical/Surgical History -: HTN -: Hypercholesterolemia Review of Systems Respiratory: SOB with Excertion Cardiovascular: Chest Pain (Intermittent left sided radiates to left shoulder) Physical Examination - Physical Exam General: Alert, In no apparent distress, Oriented x3 HEENT: Atraumatic, Normocephalic, PERRLA Neck: Supple, 2+ carotid pulse no bruit, JVD not distended Respiratory: Clear to auscultation bilaterally, Normal air movement Cardiovascular: Normal pulses, Regular rate/rhythm, Normal S1 S2 Capillary refill: <2 Seconds Gastrointestinal: Normal bowel sounds, Soft and benign, No tenderness Musculoskeletal: No clubbing Integumentary: No rashes Neurological: Normal speech, Normal tone - Studies Laboratory Data (last 24 hrs) 09/25/23 09/25/23 09/25/23 11:35 11:35 11:35 WBC 5.20 Hgb 12.6 L Hct 40.2 Plt Count 224 PT 12.5 INR 1.14 Sodium 138 Potassium 3.7 BUN 14 Creatinine 1.12 Glucose 128 H Assessment and Plan - Plan Assessment and plan Chest pain r/o ACS - EKG: No obvious ST segment changes - Serial troponin - Ordered transthoracic echocardiogram - chest x-ray-"the lungs are grossly clear. The heart is upper limit of normal in size. No displaced fractures. IMPRESSION: No acute intrathoracic process suspected." - Consult Cardiology - recommendations appreciated - S/P aspirin 324 mg PO x 1 in ED - Start daily baby aspirin and statin - Symptom control with PRN acetaminophen, nitroglycerin, morphine - continuous telemetry -TSH/FreeT4, A1C, lipid panel pending hx HTN -Continue home medications DVT ppx SCD full code LOS 24 hours Discharge Plan: Home Plan to discharge in: 24 Hours - Advance Directives Does patient have a Living Will: No Does patient have a Durable POA for Healthcare: No
[2023-09-25] MEDS ORDERED: ACETAMINOPHEN 500 MG TAB PO PRN (14:10)
[2023-09-25] MEDS ORDERED: MORPHINE 2 MG/ML SYR IV PRN (14:10)
[2023-09-25] MEDS ORDERED: NITROGLYCERIN 0.4 MG/TAB SL PRN (14:10)
[2023-09-25 15:32] LABS: Thyroid Stimulating Hormone 1.69 uIU/mL (0.358-3.740)
[2023-09-25 15:49] VITALS: BMI 32.2
[2023-09-25] MEDS: HYDRALAZINE HCL 20 MG/ML VIAL IV PRN (16:30)
[2023-09-26 05:40] LABS: Absolute Eosinophils 0.4 K/uL (0-0.5); Absolute Lymphocytes (CBC) 2.4 K/uL (0.7-4.9); Absolute Monocytes 0.7 K/uL (0.1-1.3); Basophils % 0.7 % (0-1.3); Eosinophils % 6.7 % (0-4.4); Hematocrit 37.3 % (39.6-49.0); Hemoglobin 12.4 g/dL (13.6-17.9); Lymphocytes % 43.4 % (15.3-44.8); MCHC 33.3 g/dL (32.0-36.0); MCV 84.2 fL (80-100); MPV 8.1 fL (7.6-11.3); Monocytes % 12.7 % (3.3-12.3); Neutrophils % 36.5 % (41.7-73.7); Nucleated Red Blood Cells % 0.3 % (0-0); Platelets 226 thou/uL (152-406); RBC Red Blood Cell Count 4.43 M/uL (4.33-5.43); Red Cell Distribution Width 14.9 % (12.1-15.2)
[2023-09-26] MEDS: ATORVASTATIN 40 MG TAB PO SCH (10:59)
[2023-09-26 11:36] LABS: Anion Gap 5.7 mEq/L (5.0-15.0); Magnesium 2.1 mg/dL (1.6-2.4); Phosphorus 2.4 mg/dL (2.5-4.9); Potassium 3.7 mEq/L (3.5-5.1)
[2023-09-26 12:22] VITALS: O2SAT 99
[2023-09-26] MEDS: POTASSIUM CL SA 10 MEQ TAB PO ONE (12:27)
--- NOTE | 2023-09-26 13:24 | P.CNS ---
Date of Consult: 09/26/23 Chief Complaint: Chest pain R/O History of Present Illness: Patient with PMH of HTN, presented with occasional chest pain that has been going on for few weeks but got worse yesterday after he was doing some physical activity. no other cardiac symptoms. Allergies No Known Allergies Allergy (Unverified 07/29/15 19:55) Home Medications: Amlodipine [Norvasc*] 7.5 mg PO BEDTIME 09/25/23 Atorvastatin Calcium 1 tab PO BEDTIME 09/25/23 hydroCHLOROthiazide [Hydrochlorothiazide] 12.5 mg PO BEDTIME 09/25/23 - Past Medical/Surgical History Diabetic: No -: HTN -: Hypercholesterolemia - Social History Smoking Status: Current every day smoker Alcohol use: No CD- Drugs: No Caffeine use: Yes Place of Residence: Home Review of Systems 10-point ROS is otherwise unremarkable Physical Examination Temp Pulse Resp BP Pulse Ox 97.5 F 67 18 125/74 97 09/26/23 08:00 09/26/23 08:00 09/26/23 08:00 09/26/23 08:00 09/26/23 08:00 General: Alert, In no apparent distress HEENT: Atraumatic, PERRLA, Mucous membr. moist/pink, EOMI, Sclerae nonicteric Neck: Supple, 2+ carotid pulse no bruit, No LAD, Without JVD or thyroid abnormality Respiratory: Clear to auscultation bilaterally, Normal air movement Cardiovascular: Regular rate/rhythm, Normal S1 S2 Gastrointestinal: Normal bowel sounds, No tenderness Musculoskeletal: No tenderness Integumentary: No rashes Neurological: Normal gait, Normal speech, Normal tone, Normal affect Lymphatics: No axilla or inguinal lymphadenopathy - Problems (1) Chest pain Current Visit: Yes Status: Acute Plan: Paitent presenting with stable angina, troponin negative, outpatient stress test and echo start ASA 81 mg daily start Crestor 20 mg daily (2) HTN (hypertension) Current Visit: Yes Status: Acute Plan: continue patient home medications (3) HLD (hyperlipidemia) Current Visit: Yes Status: Acute Plan: start Crestor 20 mg daily
[2023-09-26] MEDS: POTASS/SODIUM PHOSPHATE 1 PKT POWD.PACK PO SCH (14:14)
[2023-09-26 14:32] VITALS: BP 147/76; TEMP 97.6
--- NOTE | 2023-09-26 15:42 | P.DS ---
Admission Date: 09/25/23 Discharge Date: 09/26/23 Disposition: ROUTINE DISCHARGE Discharge Condition: GOOD Reason for Admission: Chest pain R/O Brief History of Present Illness: Diagnosis Chest pain r/o ACS stable angina Hx HTN Hx hypercholesterolemia HPI 09/25/23 Von Pond is a 72 year old male with Pmhx hypertension, hypercholesterolemia who presents to the ED with chief complaint of left sided c hest pain radiating to left shoulder that started 3 days ago. He reports moving a yeast washer and a heavy door 1 week ago which could be contributing to the chest pain. On palpation, the chest pain is nonreproducible. Toponin and EKG negative for ST elevation or depression. Will plan to trend troponin overnight, monitor on continuous telemetry, and consult cardiology. Initial vitals BP 187 / 94; Pulse 73; Resp 17; Temp 98.2; Pulse Ox 99% on R/A Chest x-ray reports "the lungs are grossly clear. The heart is upper limit of normal in size. No displaced fractures. IMPRESSION: No acute intrathoracic process suspected." Laboratory evaluation troponin 5.8, BNP 11, potassium 3.7, serum glucose 128 Von will be admitted to hospitalist service for further evaluation and treatment of chest pain r/o ACS, Cardiology consulted. Hospital Course: Von Pond is a pleasant 72 year old male with a past medical history significant for hypertension, hypercholesterolemia who was admitted to the [facility] on 09/25/23 for Chest pain. Von Pond was admitted for chest pain requiring further evaluation by cardiology. During this admission, troponins remained negative, EKG was nonspecific for ST elevation/depression, intermittent chest pain has resolved, and further evaulation will be conducted with Dr. Wyatt at his clini with a plan to schedule an ECHO and stress test. Blood pressure has been elevated and will need to be recorded twice a day for better evaluation. Dr. Wyatt recommends crestor and aspirin daily. On 09/26/23, Von was seen on morning rounds and deemed medically stable for discharge. Von was discharged with instructions to schedule follow-up appointments with PCP and Dr. Wyatt. Von was provided prescriptions for Crestor and aspirin. The patient and family members were given the opportunity to ask questions and reported no further questions. Furthermore, all questions were answered to the best of my ability. Physical Exam General: Alert and Oriented x3, NAD HEENT: Atraumatic, Normocephalic, PERRLA Neck: Supple, 2+ carotid pulse no bruit, JVD not distended Respiratory: Clear to auscultation bilaterally, Normal air movement Cardiovascular: Normal pulses, RRR, Normal S1 S2, no murmur noted Capillary refill: <2 Seconds Gastrointestinal: Normal bowel sounds, Soft and benign on palpation, No tenderness Musculoskeletal: No clubbing Integumentary: No rashes Neurological: Normal speech, Normal tone Vital Signs/Physical Exam: Temp Pulse Resp BP Pulse Ox 97.6 F 69 19 147/76 H 99 09/26/23 12:00 09/26/23 12:00 09/26/23 12:00 09/26/23 12:00 09/26/23 12:00 Laboratory Data at Discharge: WBC 5.60 thou/uL (4.3-10.9) 09/26/23 04:55 Hgb 12.4 g/dL (13.6-17.9) L 09/26/23 04:55 Hct 37.3 % (39.6-49.0) L 09/26/23 04:55 Plt Count 226 thou/uL (152-406) 09/26/23 04:55 PT 12.5 SECONDS (9.4-12.5) 09/25/23 11:35 INR 1.14 09/25/23 11:35 Sodium 138 mEq/L (136-145) 09/26/23 11:00 Potassium 3.7 mEq/L (3.5-5.1) 09/26/23 11:00 BUN 14 mg/dL (7-18) 09/26/23 11:00 Creatinine 1.08 mg/dL (0.70-1.30) 09/26/23 11:00 Glucose 168 mg/dL (74-106) H 09/26/23 11:00 Phosphorus 2.4 mg/dL (2.5-4.9) L 09/26/23 11:00 Magnesium 2.1 mg/dL (1.6-2.4) 09/26/23 11:00 Triglycerides 161 mg/dL (<150) H 09/26/23 11:00 Cholesterol 118 mg/dL (<200) 07/06/24 11:00 HDL Cholesterol 39 mg/dL (40-60) L 09/26/23 11:00 Cholesterol/HDL Ratio 3.03 09/26/23 11:00 Home Medications: Amlodipine [Norvasc*] 7.5 mg PO BEDTIME 09/25/23 hydroCHLOROthiazide [Hydrochlorothiazide] 12.5 mg PO BEDTIME 09/25/23 Aspirin [Aspirin EC 81 MG] 81 mg PO DAILY 30 Days #30 tab 09/26/23 Rosuvastatin Calcium [Crestor] 20 mg PO DAILY 30 Days #30 tab 09/26/23 New Medications: Aspirin [Aspirin EC 81 MG] 81 mg PO DAILY 30 Days #30 tab Rosuvastatin Calcium [Crestor] 20 mg PO DAILY 30 Days #30 tab Physician Discharge Instructions: Von Pond was admitted for chest pain and further evaluation with cardiology. Troponins have trended flat, intermittent chest pain has resolved, and further evaulation will be conducted with Dr. Wyatt at his clinic. Please schedule a follow up visit and and ECHO/Stress test as well. Your blood pressure has been elevated, please check your blood pressure twice daily and keep a record for Dr. Wyatt to evaluate. 1. Please call and schedule a follow-up appointment with your PCP in 3-5 days - Please follow-up with your PCP for medication refills/adjustments 2. Please call and schedule a follow-up appointment with Dr. Wyatt in 1 week -Schedule ECHO and stress test with Dr. Wyatt's office 3. Continue heart healthy diet 4. No activity restrictions 5. Return to the ED if symptoms worsen New medications Crestor 20 mg p.o. daily Aspirin 81 mg p.o. daily Diet: AHA Activity: Ad jone Followup: Oren Wyatt MD [ACTIVE - CAN ADMIT] - 1 Week (call to schedule an appointment) ADIA NIXON [Primary Care Provider] - (follow up in 3-5 days)
[2023-09-27] MEDS ORDERED: ASPIRIN EC 81 MG TAB PO SCH (09:00)
== END 2023-09-26 16:50 | disposition home or self-care (01) ==
LOC: ER 10:48 → ERHOLD 14:10 → 4TH 15:10
PROVIDERS: ADMIT Hospitalist; ATTEND Hospitalist
DX: R07.9 Chest pain, unspecified (principal); E78.00 Pure hypercholesterolemia, unspecified; F17.210 Nicotine dependence, cigarettes, uncomplicated; E78.5 Hyperlipidemia, unspecified; I10 Essential (primary) hypertension
CPT/HCPCS: 36415; 71045; 80048; 80061; 83036; 83735; 83880; 84100; 84439; 84443; 84484; 85025; 85610; 99285; J0360